=== PATIENT | female | born 1980 | race Caucasian/White ===

== ENCOUNTER 2019-09-09 14:49 | Emergency (ER) | payer MEDICAID, OTHER ==
[~2019-09-09] VITALS: Ht 185.4 cm; Wt 67.5 kg
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
--- NOTE | 2019-09-09 16:14 | NUR ---
Pt moved to overflow
[2019-09-09 16:19] LABS: BASOPHILS % (AUTO) 0.5 % (0-1); EOSINOPHILS # (AUTO) 0.2 X10'3 (0-0.9); EOSINOPHILS % (AUTO) 1.9 % (0-6); HEMATOCRIT 42.9 % (35.0-45.0); HEMOGLOBIN 14.6 g/dl (12.0-16.0); LYMPHOCYTES # (AUTO) 2.7 X10'3 (1.1-4.8); MEAN CORPUSCULAR HEMOGLOBIN 32.3 PG (27.0-31.0); MEAN PLATELET VOLUME 7.9 FL (7.4-10.4); MONOCYTES # (AUTO) 0.4 X10'3 (0-0.9); MONOCYTES % (AUTO) 4.6 % (2-12); NEUTROPHILS # (AUTO) 4.7 X10'3 (1.8-7.7); PLATELET COUNT 253 X10'3 (140-440); RED BLOOD COUNT 4.52 X10'6 (4.20-5.60); RED CELL DISTRIBUTION WIDTH 13.4 % (11.5-14.5)
--- NOTE | 2019-09-09 16:20 | NUR ---
pt amb with steady gait to overflow, calm and cooperative, "I just want to sleep", report to Handsel RN
[2019-09-09 16:26] LABS: URINE HCG NEGATIVE (NEG)
[2019-09-09 16:33] LABS: ALANINE AMINOTRANSFERASE 31 U/L (12-78); ALBUMIN 4.3 G/DL (3.4-5.0); ALBUMIN/GLOBULIN RATIO 1.4 (1.1-1.5); ALKALINE PHOSPHATASE 30 IU/L (46-116); ANION GAP 10 (8-16); ASPARTATE AMINO TRANSFERASE 20 U/L (10-37); BILIRUBIN,TOTAL 0.9 MG/DL (0.1-1.0); BLOOD UREA NITROGEN 15 MG/DL (7-18); BUN/CREATININE RATIO 13.8 (6.6-38.0); CALCIUM 8.8 MG/DL (8.5-10.1); CHLORIDE 107 MMOL/L (99-107); CREATININE 1.09 MG/DL (0.40-0.90); GLUCOSE 84 MG/DL (70-104); POTASSIUM 3.4 MMOL/L (3.5-5.1); SODIUM 143 MMOL/L (135-145); TOTAL PROTEIN 7.4 G/DL (6.4-8.2); eGFR 56 ML/MIN
[2019-09-09 16:41] LABS: URINE AMPHETAMINE SCREEN NEGATIVE (Neg); URINE BARBITUATE SCREEN NEGATIVE (Neg); URINE BENZODIAZEPINES SCREEN NEGATIVE (Neg); URINE CANNABINOID SCREEN POSITIVE (Neg); URINE COCAINE SCREEN NEGATIVE (Neg); URINE METHADONE SCREEN NEGATIVE (Neg); URINE OPIATE SCREEN NEGATIVE (Neg); URINE PHENCYCLIDINE SCREEN NEGATIVE (Neg)
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
[2019-09-09 16:42] LABS: ETHANOL < 0.010 GM/DL (0.0-0.010)
--- NOTE | 2019-09-09 17:21 | NUR ---
Pt requesting chicken broth. Chicken broth provided
--- NOTE | 2019-09-09 19:30 | NUR ---
Pt. resting in bed, awake, calm and cooperative. She does demonstrate brief episodes of strange behaviors and grandiose ideation...i.e. Pt. states that we should collect the vomit of sick patients because they contain "demons." She also believes that she should not be in this place because she is supposed to become the college president. She denies visual and/or auditory hallucination at this time, but seems to be responding to internal stimuli. She believes that the book she is currently reading has congruency with her life.
--- NOTE | 2019-09-09 20:46 | NUR ---
IVANA Singh from [facility] at bedside evaluating pt. Pt. is being cooperative and answering questions appropriately. She continues to present very manic, demonstrating flight of ideas.
--- NOTE | 2019-09-09 21:29 | NUR ---
Pt. resting calmly in bed.
--- NOTE | 2019-09-09 22:43 | NUR ---
Pt. in bed, resting with eyes closed. She appears to be comfortable.
--- NOTE | 2019-09-09 23:57 | NUR ---
relieving RN for break, pt is sleeping on gurney, resp even and unlabored
--- NOTE | 2019-09-10 00:30 | NUR ---
Pt. continues to sleep. Appears to be comfortable.
--- NOTE | 2019-09-10 01:30 | NUR ---
Pt. in bed, asleep.
--- NOTE | 2019-09-10 02:11 | NUR ---
Pt. had brief dialogue with this nurse, expressing that she feels like she lacks self confidence. She states that she needs to get better and heal so she can do what she's "called to do." Conversation redirected to her basic needs at the moment, to rest and to participate with her healthcare team.
--- NOTE | 2019-09-10 03:21 | NUR ---
Pt. in bed, asleep. Appears to be comfortable.
[2019-09-10] MEDS ORDERED: NO HOME MEDS (04:19)
--- NOTE | 2019-09-10 04:29 | NUR ---
Pt. continues to sleep.
--- NOTE | 2019-09-10 05:19 | NUR ---
Pt. in bed, asleep. Appears to be comfortable.
[2019-09-10 05:52] VITALS: BP 104/62
--- NOTE | 2019-09-10 07:10 | NUR ---
Pt given bath basin, toiletries and new scrubs. Pt now in restroom cleaning up and changing.
[2019-09-10] MEDS ORDERED: diphenhydrAMINE 25mg capsule PO PRN (10:15)
[2019-09-10] MEDS ORDERED: acetaminophen 325mg tablet PO PRN (10:15)
--- NOTE | 2019-09-10 10:55 | NUR ---
Pt requesting something for neck pain. Pt reports "sometimes" she gets a rash from tylenol but then goes on to report she can take "nyquil but not dayquil". Pt reports she can take tylenol and can also take benadryl "just in case". Discussed request/coversation with Dr. Mtz and received VO for PRN Tylenol and Benadryl
--- NOTE | 2019-09-10 11:13 | NUR ---
Gave report to Hannah from [facility]. Pt fermin being evaluated for possible placement.
--- NOTE | 2019-09-10 12:51 | NUR ---
Patient awake and requests the temperature outside. She complains of pain to her neck and warm compress is provided.
[2019-09-10] MEDS ORDERED: LORazepam 1 MG tablet PO ONE (15:00)
--- NOTE | 2019-09-10 15:00 | NUR ---
Pt accepted at [facility] by Dr. Puente. Report from [facility] office pt transport to arrive around 1814 this chepe.
--- NOTE | 2019-09-10 18:30 | NUR ---
pt awoken to eat dinner .
--- NOTE | 2019-09-10 18:40 | NUR ---
pt told she was going to [facility]
--- NOTE | 2019-09-10 18:45 | NUR ---
dale from [facility] her to take patient to [facility] . pt chnaged into her clothes and was given her belongings to take with her to [facility] . pt ambulated off unit with dale and security steday gait .
--- NOTE | 2019-09-10 19:04 | NUR ---
Kristine mari in [facility] - 09/10/19 at 1908 by HALLE pt awoken to eat dinner
== END 2019-09-10 18:45 ==
LOC: ER 14:50
DX: F91.9 Conduct disorder, unspecified (principal); J45.909 Unspecified asthma, uncomplicated; F41.9 Anxiety disorder, unspecified; F17.210 Nicotine dependence, cigarettes, uncomplicated; Z72.89 Other problems related to lifestyle; Z88.0 Allergy status to penicillin; Z91.040 Latex allergy status
CPT/HCPCS: 36415; 80053; 80305; 80320; 81025; 84443; 85025; 99285; Q0163; 99284

== ENCOUNTER 2024-10-22 14:28 | Emergency (ER) | payer BC, MEDICAID, OTHER ==
[~2024-10-22] VITALS: Ht 185.4 cm; Wt 69.1 kg
[~2024-10-22 14:28] MED LIST: NO HOME MEDS
[2024-10-22 15:55] LABS: LEUKOCYTE ESTERASE ,URINE NEGATIVE (Neg); NITRITES, URINE NEGATIVE (Neg); OCCULT BLOOD,URINE TRACE-INTACT (Neg); URINE HCG NEGATIVE (NEG)
[2024-10-22 16:01] LABS: MUCUS STRANDS FEW /LPF (Neg); SQUAMOUS EPITHELIAL CELL,UR NONE SEEN /LPF (FEW); UA COLLECTION TYPE CLN CATCH MIDSTREAM
[2024-10-22 16:07] LABS: MEAN PLATELET VOLUME 8.0 FL (7.4-10.4); RED CELL DISTRIBUTION WIDTH 13.9 % (11.5-14.5)
[2024-10-22 16:31] LABS: CREATININE 0.74 MG/DL (0.40-0.90); TOTAL CARBON DIOXIDE 28.1 MMOL/L (24-32); eCRCL 105 ML/MIN; eGFR 85 ML/MIN
[2024-10-22] MEDS ORDERED: iohexol 300mg/ml 100ml inj. ONE (17:01)
--- NOTE | 2024-10-22 17:18 | Physician Documentation ---
History of Present Illness Chief Complaint: Abdominal Pain Stated Complaint: DOCTOR REFERRAL Time Seen by MD: 15:28 Source: patient Mode of Arrival: POV Exam Limitations: no limitations HPI Patient who has struggled with abdominal pain for most of her life. Intermittently has had problems with diarrhea and constipation. Diagnosed with irritable bowel syndrome when she was younger. Has tried cutting many things out of her diet and eats a pretty clean diet. Two months ago she was having an ultrasound done and she turned a certain way and felt a pain in her left upper quadrant which has been there pretty much since then. Her doctor is working on getting her a colonoscopy. She has never had one. She has never had a CT scan. History of 2 vaginal deliveries and tubal ligation. Last Menstrual Period: Oct 22, 2024 Medication Reconciliation Allergies: Coded Allergies: oseltamivir (Unverified Allergy, Severe, numbness, seizure, 10/22/24) NSAIDS (Non-Steroidal Anti-Inflamma (Verified Allergy, Unknown, 10/22/24) Penicillins (Verified Allergy, Unknown, 10/22/24) acetaminophen (Verified Allergy, Unknown, 10/22/24) alcohol (Verified Allergy, Unknown, 10/22/24) amoxicillin (Verified Allergy, Unknown, 10/22/24) latex (Verified Allergy, Unknown, 10/22/24) Uncoded Allergies: OPIOIDS (ALL) (Allergy, Unknown, 04/28/18) Miscellaneous Medications Home Med List (No Home Medications), (Reported) Past Medical History Past Medical History: Asthma, Anxiety Past Surgical History: noncontributory Last Menstrual Period: Oct 22, 2024 Alcohol Use: Occasionally Drug Use: none Lives with: Family Lives In: Home Occupation: employed Review of Systems All Other Systems at this time: Reviewed and Negative Physical Exam Vital Signs: Temperature: 97.7, Source: Temporal, Heart Rate: 60, Respiratory Rate: 14, BP: 103/66, Pulse Oximetry: 99, Weight: 69.090 General Appearance: alert Neck: normal inspection Respiratory: no respiratory distress Chest: no accessory muscle use Gastrointestinal: other (Mild pain in the right lower quadrant and left upper quadrant) Extremities: normal range of motion, non-tender Neurologic: oriented x4 Psychiatric: normal mood/affect Skin: normal color, warm/dry Progress Results/Orders Results/Orders Orders - TRISTAN REED MD Ct Abdomen Pelvis (10/22/24 16:35) Completed Orders - TRISTAN REED MD Hcg, Ur Ql (10/22/24 14:56) Cbc/Diff (10/22/24 14:56) BMP (10/22/24 14:56) Lipase (10/22/24 14:56) CMP (10/22/24 14:56) Ua W/Microscopic, Cult If Ind (10/22/24 15:35) Iohexol 300mg/Ml 100ml Inj. (Omnipaque-3 (10/22/24 17:01) Vital Signs 10/22/24 10/22/24 14:50 15:56 Temp 97.7 Pulse 60 Resp 18 14 B/P (MAP) 103/66 Pulse Ox 99 Laboratory Tests Test 10/22/24 15:35 10/22/24 15:51 Urine Specimen Description Cln catch midstream Urine Color Yellow Urine Clarity Clear Urine pH 6.0 Urine Specific [place] 1.010 Urine Protein Negative Urine Glucose (UA) Negative Urine Ketones Negative Urine Occult Blood Trace-intact Urine Nitrite Negative Urine Bilirubin Negative Urine Urobilinogen 0.2 Urine Leukocyte Esterase Negative Urine RBC 0-2 Urine WBC None seen Urine Squamous Epithelial Cells None seen Urine Bacteria None seen Urine Mucus Few Urine Culture Indicated Not ind Volume Urine Centrifuged 10 ml Urine HCG, Qualitative Negative Urine Comment White Blood Count 7.7 Red Blood Count 4.59 Hemoglobin 13.8 Hematocrit 41.3 Mean Corpuscular Volume 89.9 Mean Corpuscular Hemoglobin 30.1 Mean Corpuscular Hemoglobin Concent 33.5 Red Cell Distribution Width 13.9 Platelet Count 240 Mean Platelet Volume 8.0 Neutrophils (%) (Auto) 56.5 Lymphocytes (%) (Auto) 33.7 Monocytes (%) (Auto) 5.2 Eosinophils (%) (Auto) 4.1 Basophils (%) (Auto) 0.5 Neutrophils # (Auto) 4.4 Lymphocytes # (Auto) 2.6 Monocytes # (Auto) 0.4 Eosinophils # (Auto) 0.3 Basophils # (Auto) 0.0 CBC Comment Sodium Level 140 Potassium Level 3.9 Chloride Level 105 Carbon Dioxide Level 28.1 Anion Gap 7 L Blood Urea Nitrogen 9 Creatinine 0.74 Estimated GFR/1.73 m2 85 BUN/Creatinine Ratio 12.2 Glucose Level 86 Calcium Level 9.1 Total Bilirubin 0.6 Aspartate Amino Transf (AST/SGOT) 21 Alanine Aminotransferase (ALT/SGPT) 18 Alkaline Phosphatase 41 L Total Protein 7.7 Albumin 4.3 Globulin 3.4 Albumin/Globulin Ratio 1.3 Lipase 34 Chemistry Comments Medical Decision Making Additional Comments CBC, chemistry, UA and CT scan of the abdomen and pelvis unremarkable. Patient is to keep with her current plan for colonoscopy. Recommended trying coming off of gluten for 2-4 weeks to see if there is any improvement. Discharged home in good condition. Return here if new or worsening symptoms. Departure Impression: Primary Impression: Abdominal pain Qualified Codes: R10.9 - Unspecified abdominal pain Condition: Stable Discharge Instructions: Abdominal Pain (Nonspecific) Additional Instructions: Keep your follow up plans with your primary doctor and your colonoscopy. Return here if new or worsening symptoms prior to follow up. Referrals: NO PRIMARY CARE PROVIDER (PCP) Education Educated: Patient Educated regarding: diagnosis, need for follow up Signature Scribe Signature: No scribe Attestation: No maineibTRISTAN Eric MD Oct 22, 2024 17:18
--- NOTE | 2024-10-22 18:24 | RADIOLOGY REPORT ---
COMPUTERIZED TOMOGRAPHY ABDOMEN AND PELVIS WITH CONTRAST REASON FOR EXAM: LUQ pain COMPARISON: None TECHNIQUE: The exam was performed on a Multidetector scanner. Spiral scans were acquired from the berto phragm to the symphysis pubis after administration of IV contrast. 2-D coronal and sagittal reformatt ed images were provided. Radiation optimization: All CT scans at this facility use at least one of th armand dose optimization techniques: Automated exposure control mA and/or kV adjustment per patient size (includes targeted exams where dose is matched to clinical indication) or iterative reconstruction. CONTRAST: 100 cc OMNIPAQUE 300 RADIATION DOSE: CTDI: 11 mGy DLP: 539 mGy-cm FINDINGS: The visualized lung bases are grossly clear. There is no pleural effusion. There is no pericardial e ffusion. The spleen is not enlarged. The liver is at the upper limits of normal for size. No focal hepatic le maria c is identified. The portal vein is patent. No calcified gallstone is identified. There is no pe richolecystic edema. The pancreas is within normal limits. The adrenal glands are normal. The kidne ys enhance symmetrically. No solid renal mass is identified. There is no hydronephrosis of either kid camilla. There is no abdominal aortic aneurysm. No pathologic lymphadenopathy is identified by size crite gio. The urinary bladder is within normal limits. There is a tampon within the vagina. The uterus is retroflexed. The ovaries are grossly within normal limits. There is trace free fluid in the dependent pelvis, likely physiologic. The appendix is normal. The colonic stool burden is small. There is no distention of the small bowel to suggest obstruction. There is no abdominal aortic aneurysm. No acute osseous abnormality is identified. IMPRESSION: No acute finding in the abdomen or pelvis to explain the patient's abdominal pain. Unremarkable appearance of the pancreas. No hydronephrosis. Normal appendix.
[2024-10-22 19:08] VITALS: BP 138/76; PULSE 80; RESP 16; TEMP 97.7; O2SAT 98
== END 2024-10-22 19:11 | disposition home or self-care (01) ==
LOC: ER 14:29
DX: R10.12 Left upper quadrant pain (principal); J45.909 Unspecified asthma, uncomplicated; Z88.0 Allergy status to penicillin; Z88.6 Allergy status to analgesic agent; Z91.040 Latex allergy status
CPT/HCPCS: 36415; 74177; 80053; 81001; 81025; 83690; 85025; 99285; Q9967